=== PATIENT | male | born 1950 | race Caucasian/White ===

== ENCOUNTER 2021-11-29 02:59 | Inpatient (IN) ==
[2021-11-29 04:52] LABS: Basophils % 0.7 % (0.0-0.8); Eosinophils # 0.2 10*3/uL (0.0-0.87); Eosinophils % 3.4 % (0.00-10.9); Hematocrit 37.3 VOL% (42.0-52.0); Hemoglobin 12.2 GM/DL (14.0-18.0); Immature Granulocytes % 0.5 %; Immature Granulocytes Absolute 0.02 #; Lymphocytes % 44.1 % (21.2-54.2); Mean Corpuscular HGB Conc 32.7 GM/DL (32-36); Mean Corpuscular Volume 89.7 FL (87-102); Mean Platelet Volume 10.7 FL (9.6-12.0); Monocytes % 13.3 % (1.7-12.7); Platelet Count 234 T/CUMM (130-400); Red Blood Count 4.16 MC/CUMM (3.8-5.5); White Blood Count 4.4 T/CUMM (4-12)
[2021-11-29 05:04] LABS: INR 1.1; PT Patient Result 11.7 SECS (10.5-12.0); Partial Thromboplastin Time 27.3 SECS (23.8-32.1)
[2021-11-29 05:08] LABS: INR 1.1; PT Patient Result 11.7 SECS (10.5-12.0)
[2021-11-29 05:34] LABS: Albumin 3.7 G/DL (3.4-5.0); Bilirubin,Total 0.5 MG/DL (0.20-1.00); Calcium 8.8 MG/DL (8.5-10.1); Osmolality,Calculated 280.4 MOS/KG (273-304); Potassium 4.5 MMOL/L (3.5-5.1); Total Protein 7.9 G/DL (6.4-8.2)
[2021-11-29] MEDS ORDERED: GLUCAGON 1 MG VIAL IM PRN (05:41)
[2021-11-29] MEDS ORDERED: DEXTROSE 10% 250 ML BAG IV PRN (05:41)
[2021-11-29] MEDS ORDERED: ONDANSETRON 4 MG/2 ML VIAL IV PRN (05:41)
[2021-11-29] MEDS ORDERED: ACETAMINOPHEN 325 MG TABLET PO PRN (05:41)
[2021-11-29 06:21] LABS: Folate 8.03 NG/ML (5.38-24.0)
[2021-11-29 06:23] LABS: Risk Ratio 4.81; Thyroid Stimulating Hormone 4.33 uIU/ml (0.358-3.74); VLDL Cholesterol 18.8 MG/DL
[2021-11-29 06:25] LABS: % Iron Saturation 16.7 % (18-50); Ferritin 190.5 ng/mL (26-388)
[2021-11-29 06:41] LABS: Eosinophils 2 % (0-10); Hypochromia Slight; Lymphocytes 57 % (20-55); Microcytosis 1+; Segmented Neutrophils 31 % (50-85); Total Cells Counted 100
[2021-11-29 06:42] LABS: Ovalocytes Slight; Platelet Estimate Normal
[2021-11-29] MEDS: SODIUM CHLORIDE 0.9% 1,000 ML IV SCH ×2 (06:43→14:35)
[2021-11-29] MEDS: PANTOPRAZOLE 40 MG TABLET PO SCH (14:47)
[2021-11-29] MEDS: ATORVASTATIN 40 MG TABLET PO SCH (21:17)
[2021-11-29] MEDS: ENOXAPARIN 30 MG/0.3 ML SYRINGE SUBCUT SCH (21:17)
[2021-11-30] MEDS: SODIUM CHLORIDE 0.9% 1,000 ML IV SCH ×4 (02:36→22:36)
[2021-11-30 05:31] LABS: Basophils % 0.6 % (0.0-0.8); Eosinophils # 0.2 10*3/uL (0.0-0.87); Eosinophils % 3.3 % (0.00-10.9); Hematocrit 36.2 VOL% (42.0-52.0); Hemoglobin 11.8 GM/DL (14.0-18.0); Immature Granulocytes % 0.2 %; Immature Granulocytes Absolute 0.01 #; Lymphocytes # 2.4 10*3/uL (1.4-4.0); Lymphocytes % 49.8 % (21.2-54.2); Mean Corpuscular HGB Conc 32.6 GM/DL (32-36); Mean Corpuscular Volume 89.6 FL (87-102); Mean Platelet Volume 10.7 FL (9.6-12.0); Monocytes % 10.8 % (1.7-12.7); Neutrophils % 35.3 % (38.7-73.9); Platelet Count 222 T/CUMM (130-400); Red Blood Count 4.04 MC/CUMM (3.8-5.5); Red Cell Distribution Width 12.9 % (9.3-17.3); White Blood Count 4.8 T/CUMM (4-12)
[2021-11-30 05:59] LABS: Eosinophils 2 % (0-10); Hypochromia 1+; Lymphocytes 48 % (20-55); Nucleated Red Blood Cells 1 (0-5); Segmented Neutrophils 42 % (50-85); Total Cells Counted 100
[2021-11-30 06:00] LABS: Microcytosis Slight; Ovalocytes Slight; Platelet Estimate Normal
[2021-11-30 06:01] LABS: Calcium 8.4 MG/DL (8.5-10.1); Osmolality,Calculated 279.4 MOS/KG (273-304); Potassium 4.2 MMOL/L (3.5-5.1)
[2021-11-30 07:26] LABS: Bilirubin,Urine Negative (Negative); Blood, Urine Negative (Negative); Glucose,Urine (UA) Negative (Negative); Ketones,Urine Negative (Negative); Mucus,Urine Occasional /LPF (Occasional); Nitrite,Urine Negative (Negative); Protein,Urine Negative; RBC,Urine 3 /HPF (0-4); Squamous Epithelial Cell,Urine Occasional /HPF (0-10); Urine Appearance CLEAR (Clear); Urine Color Yellow (Yellow); Urine Specific Gravity 1.018 (1.001-1.035); Urine Urobilinogen < 2.0 EU/DL (<2.0)
[2021-11-30 07:39] LABS: Barbiturates Screen,Urine Negative (Negative); Benzodiazepines Screen,Urine Negative (Negative); Cannabinoid Screen,Urine Negative (Negative); Opiate Screen,Urine Negative (Negative); Phencyclidine Screen,Urine Negative (Negative)
[2021-11-30] MEDS: PANTOPRAZOLE 40 MG TABLET PO SCH (09:27)
[2021-11-30] MEDS: FERROUS SULFATE 325 MG TABLET PO SCH (09:28)
[2021-11-30] MEDS: ASPIRIN EC 81 MG TABLET PO SCH (09:28)
[2021-11-30 09:58] LABS: Free T4 (Free Thyroxine) 0.76 NG/DL (0.76-1.46)
[2021-11-30] MEDS: ATORVASTATIN 40 MG TABLET PO SCH (20:03)
[2021-11-30] MEDS: ENOXAPARIN 30 MG/0.3 ML SYRINGE SUBCUT SCH (20:03)
[2021-12-01 06:02] LABS: Basophils % 0.7 % (0.0-0.8); Eosinophils # 0.2 10*3/uL (0.0-0.87); Hematocrit 36.1 VOL% (42.0-52.0); Hemoglobin 11.9 GM/DL (14.0-18.0); Lymphocytes # 2.3 10*3/uL (1.4-4.0); Lymphocytes % 54.4 % (21.2-54.2); Mean Corpuscular Volume 88.5 FL (87-102); Mean Platelet Volume 11.7 FL (9.6-12.0); Monocytes % 9.3 % (1.7-12.7); Neutrophils % 31.6 % (38.7-73.9); Platelet Count 219 T/CUMM (130-400); Red Blood Count 4.08 MC/CUMM (3.8-5.5); Red Cell Distribution Width 12.7 % (9.3-17.3); White Blood Count 4.3 T/CUMM (4-12)
[2021-12-01 06:15] LABS: Osmolality,Calculated 279.4 MOS/KG (273-304); Potassium 4.1 MMOL/L (3.5-5.1)
[2021-12-01 07:57] LABS: Band Neutrophils 1 % (0-10); Eosinophils 4 % (0-10); Lymphocytes 49 % (20-55); Platelet Estimate Normal; Segmented Neutrophils 31 % (50-85); Total Cells Counted 100
[2021-12-01 07:58] LABS: Anisocytosis 1+; Atypical Lymphocytes Few; Burr Cells Few; Ovalocytes Few
[2021-12-01] MEDS: FERROUS SULFATE 325 MG TABLET PO SCH (08:21)
[2021-12-01] MEDS: PANTOPRAZOLE 40 MG TABLET PO SCH (08:21)
[2021-12-01] MEDS: ASPIRIN EC 81 MG TABLET PO SCH (08:21)
[2021-12-01] MEDS: SODIUM CHLORIDE 0.9% 1,000 ML IV SCH (09:36)
[2021-12-01 12:31] VITALS: BP 142/79
== END 2021-12-01 13:18 | disposition home or self-care (01) | DRG 65 ==
LOC: SUATTDRO → N.ED 02:59 → N.EDINP 02:59 → N.TELEN 13:53 → SUATTDRO 11-30 12:43
PROVIDERS: ADMIT Internal Medicine; ATTEND Internal Medicine Geriatric Medicine